=== PATIENT | female | born 1975 | race Caucasian/White ===

== ENCOUNTER 2019-12-04 11:20 | Emergency (ER) | payer MEDICARE ==
[~2019-12-04] VITALS: Ht 170.2 cm; Wt 74.8 kg
--- OUTSIDE RECORDS SUMMARY | 2019-12-04 11:23 | XMS REPORT ---
Author Author [facility] Organization [facility] Address Unknown Phone Unavailable Care Team Providers Care Agricultural Research Technician Name Role Phone Unavailable Unavailable Payers Payer Name Policy Type Policy Number Effective Date Expiration D ate Problems This patient has no known problems. Allergies, Adverse Reactions, Alerts Allergy Name Allergy Type Status Severity Reaction(s) Onset Date Inacti ve Date Treating Clinician Comments Penicillins DA Active SV 2019-07-12 00:00:00 Penicillins DA Active SV 2018-01-05 00:00:00 Penicillins DA Active SV 2010-09-07 00:00:00 Medications This patient has no known medications. Results Test Description Test Time Test Comments Text Results Atomic Results Result Comments URINALYSIS COMPLETE 2019-08-04 09:27:00 UA COLOR (test code = COLU) YELLOW YELLOW UA APPEARANCE (test code = APPU) Cloudy CLEAR UA GLUCOSE DIPSTICK (test code = DGLUU) NEGATIVE mg/dL NEGATIVE UA BILIRUBIN DIPSTICK (test code = BILU) NEGATIVE mg/dL NEGATIV E UA KETONE DIPSTICK (test code = KETU) 80 (3+) mg/dL NEGATIVE UA SPECIFIC GRAVITY (test code = SGU) 1.020 1.001-1.03 5 UA BLOOD DIPSTICK (test code = OSEAS) Negative mg/dL NEGATIVE UA PH DIPSTICK (test code = CORI) 8.0 5.0-8.0 UA PROTEIN DIPSTICK (test code = PROU) 20 (Trace) mg/dL NEGATIVE UA UROBILINIOGEN DIPSTICK (test code = URO) Normal mg/dL NEGA TIVE UA NITRITE DIPSTICK (test code = NISHA) NEGATIVE NEGATIVE UA LEUKOCYTE ESTERASE W REFLEX (test code = LEUUR) NEGATIVE Latoya/ uL NEGATIVE UA WBC (test code = WBCU) 0-5 per HPF 0-5 UA RBC (test code = RBCU) 0-2 #/HPF 0-5 UA EPITHELIAL CELLS (test code = EPIU) MOD per HPF FEW UA BACTERIA (test code = BACU) FEW #/HPF NONE UA MUCUS (test code = MUCU) MODERATE #/LPF FEW Urine Source? Clean CatchDRUGS OF ABUSE SCREEN [id number] 09:27:00* Test Item Value Reference Range Comments URN COCAINE (test code = COCAURN) NEGATIVE <300 ng/mL URN CANNABINOIDS (test code = CANNABURN) POSITIVE <50 ng/ mL This test provides only a preliminary test result. A morespecific alternate chemical method must be used in order toobtain a confirmed analytical result. Gas chromatography/mass spectrometry (GC/MS) is thepreferred confirmatory method. Other chemical confirmationmethods are available. Clinical consideration and professional judgment should be applied to any drug of abusetest result, particularly when preliminary positive resultsare used.Unconfirmed screening results must not be used fornon-medical purposes (e.g., employment testing, legaltesting). URN AMPHETAMINE (test code = AMPHETURN) POSITIVE <1000 ng /mL This test provides only a preliminary test result. A morespecific alternate chemical method must be used in order toobtain a confirmed analytical result. Gas chromatography/mass spectrometry (GC/MS) is thepreferred confirmatory method. Other chemical confirmationmethods are available. Clinical consideration and professional judgment should be applied to any drug of abusetest result, particularly when preliminary positive resultsare used.Unconfirmed screening results must not be used fornon-medical purposes (e.g., employment testing, legaltesting). URN BARBITURATE (test code = BARBITURN) NEGATIVE <200 ng/ mL URN BENZODIAZEPINE (test code = BENZOURN) NEGATIVE <200 n g/mL URN OPIATES (test code = OPIATURN) POSITIVE <300 ng/mL This test provides only a preliminary test result. A morespecific alternate chemical method must be used in order toobtain a confirmed analytical result. Gas chromatography/mass spectrometry (GC/MS) is thepreferred confirmatory method. Other chemical confirmationmethods are available. Clinical consideration and professional judgment should be applied to any drug of abusetest result, particularly when preliminary positive resultsare used.Unconfirmed screening results must not be used fornon-medical purposes (e.g., employment testing, legaltesting). URN PHENCYCLIDINE (PCP) (test code = PHENCURN) NEGATIVE < 25 ng/mL URN METHADONE (test code = METHAURN) NEGATIVE <300 ng/mL Urine Source? Clean CatchCBC W/O [id number] 09:02:00* Test Item Value Reference Range Comments WHITE BLOOD CELL (test code = WBC) 6.5 K/mm3 4.5-12.5 RED BLOOD CELL (test code = RBC) 4.73 mill/mm3 3.7-5.2 HEMOGLOBIN (test code = HGB) 13.7 gram/dL 11.5-15.5 HEMATOCRIT (test code = HCT) 40.8 % 36.0-46.0 MEAN CELL VOLUME (test code = MCV) 86.3 fL 80-98 MEAN CELL HGB (test code = MCH) 29.0 picogram 27.0-33.0 MEAN CELL HGB CONCETRATION (test code = MCHC) 33.6 gram/dL 33 .0-36.0 RED CELL DISTRIBUTION WIDTH (test code = RDW) 13.8 % 11 .6-16.2 PLATELET COUNT (test code = PLT) 259 K/mm3 150-450 MEAN PLATELET VOLUME (test code = MPV) 10.3 fL 6.7-11.0 URINALYSIS [id number] 08:55:00* Test Item Value Reference Range Comments UA COLOR (test code = COLU) YELLOW YELLOW UA APPEARANCE (test code = APPU) Cloudy CLEAR UA GLUCOSE DIPSTICK (test code = DGLUU) NEGATIVE mg/dL NEGATIVE UA BILIRUBIN DIPSTICK (test code = BILU) NEGATIVE mg/dL NEGATIV E UA KETONE DIPSTICK (test code = KETU) 80 (3+) mg/dL NEGATIVE UA SPECIFIC GRAVITY (test code = SGU) 1.020 1.001-1.03 5 UA BLOOD DIPSTICK (test code = OSEAS) Negative mg/dL NEGATIVE UA PH DIPSTICK (test code = CORI) 8.0 5.0-8.0 UA PROTEIN DIPSTICK (test code = PROU) 20 (Trace) mg/dL NEGATIVE UA UROBILINIOGEN DIPSTICK (test code = URO) Normal mg/dL NEGA TIVE UA NITRITE DIPSTICK (test code = NISHA) NEGATIVE NEGATIVE UA LEUKOCYTE ESTERASE W REFLEX (test code = LEUUR) NEGATIVE Latoya/ uL NEGATIVE UA WBC (test code = WBCU) 0-5 per HPF 0-5 UA RBC (test code = RBCU) 0-2 #/HPF 0-5 UA EPITHELIAL CELLS (test code = EPIU) MOD per HPF FEW UA BACTERIA (test code = BACU) FEW #/HPF NONE UA MUCUS (test code = MUCU) MODERATE #/LPF FEW Urine Source? Clean CatchDRUGS OF ABUSE SCREEN [id number] 08:55:00* Test Item Value Reference Range Comments URN COCAINE (test code = COCAURN) <300 ng/mL URN CANNABINOIDS (test code = CANNABURN) <50 ng/ mL URN AMPHETAMINE (test code = AMPHETURN) <1000 ng /mL URN BARBITURATE (test code = BARBITURN) <200 ng/ mL URN BENZODIAZEPINE (test code = BENZOURN) <200 n g/mL URN OPIATES (test code = OPIATURN) <300 ng/mL URN PHENCYCLIDINE (PCP) (test code = PHENCURN) < 25 ng/mL URN METHADONE (test code = METHAURN) <300 ng/mL Urine Source? Clean CatchBASIC METABOLIC [id number] 08:54:00* Test Item Value Reference Range Comments SODIUM (test code = NA) 138 mmol/L 136-145 POTASSIUM (test code = K) 3.1 mmol/L 3.5-5.1 CHLORIDE (test code = CL) 103.0 mmol/L 98-107 CARBON DIOXIDE (test code = CO2) 25.0 mmol/L 21-32 ANION GAP (test code = GAP) 13.1 10-20 GLUCOSE (test code = GLU) 97 mg/dL 74-106 BLOOD UREA NITROGEN (test code = BUN) 10 mg/dL 7-18 GLOMERULAR FILTRATION RATE (test code = GFR) > 60 mL/min >=6 0 Estimated GFR by using Modified MDRD formula.Chronic kidney disease is defined as either kidney damageor GFR <60 mL/min/1.73 m2 for >3 months. CREATININE (test code = CREAT) 0.70 mg/dL 0.55-1.02 * *Note change in reference range due to change in reagent. BUN/CREATININE RATIO (test code = BUN/CREA) 14.3 10-2 0 CALCIUM (test code = CA) 9.6 mg/dL 8.5-10.1 HEPATIC FUNCTION [id number] 08:54:00* Test Item Value Reference Range Comments TOTAL PROTEIN (test code = PROT) 7.7 gram/dL 6.4-8.2 ALBUMIN (test code = ALB) 4.0 g/dL 3.4-5.0 GLOBULIN (test code = GLOB) 3.7 gram/dL 2.7-4.2 ALBUMIN/GLOBULIN RATIO (test code = A/G) 1.1 0.75-1. 50 BILIRUBIN TOTAL (test code = BILT) 0.60 mg/dL 0.0-1.0 BILIRUBIN DIRECT (test code = BILD) 0.18 mg/dL 0.0-0.20 SGOT/AST (test code = AST) 23 IUnit/L 15-37 SGPT/ALT (test code = ALT) 31 IUnit/L 12-78 ALKALINE PHOSPHATASE TOTAL (test code = ALKP) 88 IUnit/L 45 -117 Note change in reference range due to change in reagent. [id number] 08:54:00* Test Item Value Reference Range Comments ALCOHOL (test code = ALC) 5 mg/dL 0.0-3.0 ------ INTERPRETIVE DATA NOTE: POSITIVE SCREENING RESULTS SHOULD BE CONSIDERED PRESUMPTIVE.WHEN COLLECTED FOR MEDICAL PURPOSES ONLY. SPECIMEN WILL NOTBE COLLECTED BY CHAIN OF CUSTODY.IF A CONFIRMATION OF POSITIVE RESULTS IS DESIRED, ACONFIRMATION TEST MUST BE REQUESTED BY THE PHYSICIAN AT ANADDITIONAL CHARGE TO THE PATIENT. BASIC METABOLIC [id number] 08:45:00* Test Item Value Reference Range Comments SODIUM (test code = NA) 138 mmol/L 136-145 POTASSIUM (test code = K) 3.1 mmol/L 3.5-5.1 CHLORIDE (test code = CL) 103.0 mmol/L 98-107 CARBON DIOXIDE (test code = CO2) mmol/L 21-32 ANION GAP (test code = GAP) 10-20 GLUCOSE (test code = GLU) mg/dL 74-106 BLOOD UREA NITROGEN (test code = BUN) mg/dL 7-18 GLOMERULAR FILTRATION RATE (test code = GFR) mL/min >=6 0 CREATININE (test code = CREAT) mg/dL 0.55-1.02 BUN/CREATININE RATIO (test code = BUN/CREA) 10-2 0 CALCIUM (test code = CA) mg/dL 8.5-10.1 HEPATIC FUNCTION [id number] 08:45:00* Test Item Value Reference Range Comments TOTAL PROTEIN (test code = PROT) gram/dL 6.4-8.2 ALBUMIN (test code = ALB) g/dL 3.4-5.0 GLOBULIN (test code = GLOB) gram/dL 2.7-4.2 ALBUMIN/GLOBULIN RATIO (test code = A/G) 0.75-1. 50 BILIRUBIN TOTAL (test code = BILT) mg/dL 0.0-1.0 BILIRUBIN DIRECT (test code = BILD) mg/dL 0.0-0.20 SGOT/AST (test code = AST) IUnit/L 15-37 SGPT/ALT (test code = ALT) IUnit/L 12-78 ALKALINE PHOSPHATASE TOTAL (test code = ALKP) IUnit/L 45 -117 [id number] 08:45:00* Test Item Value Reference Range Comments ALCOHOL (test code = ALC) mg/dL 0-3 COMPREHENSIVE METABOLIC [id number] 04:22:00* Test Item Value Reference Range Comments SODIUM (test code = NA) 141 mmol/L 136-145 POTASSIUM (test code = K) 3.8 mmol/L 3.5-5.1 CHLORIDE (test code = CL) 108.0 mmol/L 98-107 CARBON DIOXIDE (test code = CO2) 29.0 mmol/L 21-32 ANION GAP (test code = GAP) 7.8 10-20 GLUCOSE (test code = GLU) 97 mg/dL 74-106 BLOOD UREA NITROGEN (test code = BUN) 12 mg/dL 7-18 GLOMERULAR FILTRATION RATE (test code = GFR) > 60 mL/min >=6 0 Estimated GFR by using Modified MDRD formula.Chronic kidney disease is defined as either kidney damageor GFR <60 mL/min/1.73 m2 for >3 months. CREATININE (test code = CREAT) 0.60 mg/dL 0.55-1.02 * *Note change in reference range due to change in reagent. BUN/CREATININE RATIO (test code = BUN/CREA) 21.0 10-2 0 TOTAL PROTEIN (test code = PROT) 6.2 gram/dL 6.4-8.2 ALBUMIN (test code = ALB) 2.9 g/dL 3.4-5.0 GLOBULIN (test code = GLOB) 3.3 gram/dL 2.7-4.2 ALBUMIN/GLOBULIN RATIO (test code = A/G) 0.9 0.75-1. 50 CALCIUM (test code = CA) 8.4 mg/dL 8.5-10.1 BILIRUBIN TOTAL (test code = BILT) 0.20 mg/dL 0.0-1.0 SGOT/AST (test code = AST) 47 IUnit/L 15-37 SGPT/ALT (test code = ALT) 50 IUnit/L 12-78 ALKALINE PHOSPHATASE TOTAL (test code = ALKP) 57 IUnit/L 45 -117 Note change in reference range due to change in reagent. COMPREHENSIVE METABOLIC [id number] 04:13:00* Test Item Value Reference Range Comments SODIUM (test code = NA) 141 mmol/L 136-145 POTASSIUM (test code = K) 3.8 mmol/L 3.5-5.1 CHLORIDE (test code = CL) 108.0 mmol/L 98-107 CARBON DIOXIDE (test code = CO2) mmol/L 21-32 ANION GAP (test code = GAP) 10-20 GLUCOSE (test code = GLU) mg/dL 74-106 BLOOD UREA NITROGEN (test code = BUN) mg/dL 7-18 GLOMERULAR FILTRATION RATE (test code = GFR) mL/min >=6 0 CREATININE (test code = CREAT) mg/dL 0.55-1.02 BUN/CREATININE RATIO (test code = BUN/CREA) 10-2 0 TOTAL PROTEIN (test code = PROT) gram/dL 6.4-8.2 ALBUMIN (test code = ALB) g/dL 3.4-5.0 GLOBULIN (test code = GLOB) gram/dL 2.7-4.2 ALBUMIN/GLOBULIN RATIO (test code = A/G) 0.75-1. 50 CALCIUM (test code = CA) mg/dL 8.5-10.1 BILIRUBIN TOTAL (test code = BILT) mg/dL 0.0-1.0 SGOT/AST (test code = AST) IUnit/L 15-37 SGPT/ALT (test code = ALT) IUnit/L 12-78 ALKALINE PHOSPHATASE TOTAL (test code = ALKP) IUnit/L 45 -117 CBC W/AUTO [id number] 04:02:00* Test Item Value Reference Range Comments WHITE BLOOD CELL (test code = WBC) 5.9 K/mm3 4.5-12.5 RED BLOOD CELL (test code = RBC) 4.46 mill/mm3 3.7-5.2 HEMOGLOBIN (test code = HGB) 12.8 gram/dL 11.5-15.5 HEMATOCRIT (test code = HCT) 39.3 % 36.0-46.0 MEAN CELL VOLUME (test code = MCV) 88.1 fL 80-98 MEAN CELL HGB (test code = MCH) 28.7 picogram 27.0-33.0 MEAN CELL HGB CONCETRATION (test code = MCHC) 32.6 gram/dL 33 .0-36.0 RED CELL DISTRIBUTION WIDTH (test code = RDW) 13.2 % 11 .6-16.2 RED CELL DISTRIBUTION WIDTH SD (test code = RDW-SD) 42.5 fL 37.0-51.0 PLATELET COUNT (test code = PLT) 201 K/mm3 150-450 MEAN PLATELET VOLUME (test code = MPV) 10.0 fL 6.7-11.0 NEUTROPHIL % (test code = NT%) 44.9 % 39.0-69.0 IMMATURE GRANULOCYTE % (test code = IG%) 0.2 % 0.0-5.0 LYMPHOCYTE % (test code = LY%) 43.1 % 25.0-55.0 MONOCYTE % (test code = MO%) 8.9 % 0.0-10.0 EOSINOPHIL % (test code = EO%) 2.6 % 0.0-5.0 BASOPHIL % (test code = BA%) 0.3 % 0.0-1.0 NUCLEATED RBC % (test code = NRBC%) 0.0 % 0-0 NEUTROPHIL # (test code = NT#) 2.64 K/mm3 1.8-7.7 IMMATURE GRANULOCYTE # (test code = IG#) 0.01 x10 3/uL 0-0.03 LYMPHOCYTE # (test code = LY#) 2.53 K/mm3 1.0-5.0 MONOCYTE # (test code = MO#) 0.52 K/mm3 0-0.8 EOSINOPHIL # (test code = EO#) 0.15 K/mm3 0.0-0.5 BASOPHIL # (test code = BA#) 0.02 K/mm3 0.0-0.2 NUCLEATED RBC # (test code = NRBC#) 0.00 K/mm3 0.0-0.1 MANUAL DIFF REQUIRED (test code = MDIFF) NO CBC W/AUTO [id number] 04:00:00* Test Item Value Reference Range Comments WHITE BLOOD CELL (test code = WBC) K/mm3 4.5-12.5 RED BLOOD CELL (test code = RBC) mill/mm3 3.7-5.2 HEMOGLOBIN (test code = HGB) 12.8 gram/dL 11.5-15.5 HEMATOCRIT (test code = HCT) 39.3 % 36.0-46.0 MEAN CELL VOLUME (test code = MCV) fL 80-98 MEAN CELL HGB (test code = MCH) picogram 27.0-33.0 MEAN CELL HGB CONCETRATION (test code = MCHC) gram/dL 33 .0-36.0 RED CELL DISTRIBUTION WIDTH (test code = RDW) % 11 .6-16.2 RED CELL DISTRIBUTION WIDTH SD (test code = RDW-SD) fL 37.0-51.0 PLATELET COUNT (test code = PLT) K/mm3 150-450 MEAN PLATELET VOLUME (test code = MPV) fL 6.7-11.0 NEUTROPHIL % (test code = NT%) % 39.0-69.0 IMMATURE GRANULOCYTE % (test code = IG%) % 0.0-5.0 LYMPHOCYTE % (test code = LY%) % 25.0-55.0 MONOCYTE % (test code = MO%) % 0.0-10.0 EOSINOPHIL % (test code = EO%) % 0.0-5.0 BASOPHIL % (test code = BA%) % 0.0-1.0 NEUTROPHIL # (test code = NT#) K/mm3 1.8-7.7 LYMPHOCYTE # (test code = LY#) K/mm3 1.0-5.0 MONOCYTE # (test code = MO#) K/mm3 0-0.8 EOSINOPHIL # (test code = EO#) K/mm3 0.0-0.5 BASOPHIL # (test code = BA#) K/mm3 0.0-0.2 BASIC METABOLIC [id number] 06:32:00* Test Item Value Reference Range Comments SODIUM (test code = NA) 143 mmol/L 136-145 POTASSIUM (test code = K) 3.7 mmol/L 3.5-5.1 CHLORIDE (test code = CL) 111.0 mmol/L 98-107 CARBON DIOXIDE (test code = CO2) 27.0 mmol/L 21-32 ANION GAP (test code = GAP) 8.7 10-20 GLUCOSE (test code = GLU) 92 mg/dL 74-106 BLOOD UREA NITROGEN (test code = BUN) 8 mg/dL 7-18 GLOMERULAR FILTRATION RATE (test code = GFR) > 60 mL/min >=6 0 Estimated GFR by using Modified MDRD formula.Chronic kidney disease is defined as either kidney damageor GFR <60 mL/min/1.73 m2 for >3 months. CREATININE (test code = CREAT) 0.50 mg/dL 0.55-1.02 * *Note change in reference range due to change in reagent. BUN/CREATININE RATIO (test code = BUN/CREA) 15.4 10-2 0 CALCIUM (test code = CA) 8.4 mg/dL 8.5-10.1 [id number] 06:32:00* Test Item Value Reference Range Comments MAGNESIUM (test code = MAG) 2.1 mg/dL 1.8-2.4 BASIC METABOLIC [id number] 06:24:00* Test Item Value Reference Range Comments SODIUM (test code = NA) 143 mmol/L 136-145 POTASSIUM (test code = K) 3.7 mmol/L 3.5-5.1 CHLORIDE (test code = CL) 111.0 mmol/L 98-107 CARBON DIOXIDE (test code = CO2) mmol/L 21-32 ANION GAP (test code = GAP) 10-20 GLUCOSE (test code = GLU) mg/dL 74-106 BLOOD UREA NITROGEN (test code = BUN) mg/dL 7-18 GLOMERULAR FILTRATION RATE (test code = GFR) mL/min >=6 0 CREATININE (test code = CREAT) mg/dL 0.55-1.02 BUN/CREATININE RATIO (test code = BUN/CREA) 10-2 0 CALCIUM (test code = CA) mg/dL 8.5-10.1 [id number] 06:24:00* Test Item Value Reference Range Comments MAGNESIUM (test code = MAG) mg/dL 1.8-2.4 CBC W/O [id number] 06:02:00* Test Item Value Reference Range Comments WHITE BLOOD CELL (test code = WBC) 4.6 K/mm3 4.5-12.5 RED BLOOD CELL (test code = RBC) 4.45 mill/mm3 3.7-5.2 HEMOGLOBIN (test code = HGB) 12.9 gram/dL 11.5-15.5 HEMATOCRIT (test code = HCT) 38.5 % 36.0-46.0 MEAN CELL VOLUME (test code = MCV) 86.5 fL 80-98 MEAN CELL HGB (test code = MCH) 29.0 picogram 27.0-33.0 MEAN CELL HGB CONCETRATION (test code = MCHC) 33.5 gram/dL 33 .0-36.0 RED CELL DISTRIBUTION WIDTH (test code = RDW) 13.2 % 11 .6-16.2 PLATELET COUNT (test code = PLT) 196 K/mm3 150-450 MEAN PLATELET VOLUME (test code = MPV) 10.3 fL 6.7-11.0 BASIC METABOLIC [id number] 05:04:00* Test Item Value Reference Range Comments SODIUM (test code = NA) 141 mmol/L 136-145 POTASSIUM (test code = K) 3.6 mmol/L 3.5-5.1 CHLORIDE (test code = CL) 110.0 mmol/L 98-107 CARBON DIOXIDE (test code = CO2) 27.0 mmol/L 21-32 ANION GAP (test code = GAP) 7.6 10-20 GLUCOSE (test code = GLU) 79 mg/dL 74-106 BLOOD UREA NITROGEN (test code = BUN) 7 mg/dL 7-18 GLOMERULAR FILTRATION RATE (test code = GFR) > 60 mL/min >=6 0 Estimated GFR by using Modified MDRD formula.Chronic kidney disease is defined as either kidney damageor GFR <60 mL/min/1.73 m2 for >3 months. CREATININE (test code = CREAT) 0.50 mg/dL 0.55-1.02 * *Note change in reference range due to change in reagent. BUN/CREATININE RATIO (test code = BUN/CREA) 14.6 10-2 0 CALCIUM (test code = CA) 8.3 mg/dL 8.5-10.1 [id number] 05:04:00* Test Item Value Reference Range Comments MAGNESIUM (test code = MAG) 2.1 mg/dL 1.8-2.4 BASIC METABOLIC [id number] 05:01:00* Test Item Value Reference Range Comments SODIUM (test code = NA) 141 mmol/L 136-145 POTASSIUM (test code = K) 3.6 mmol/L 3.5-5.1 CHLORIDE (test code = CL) 110.0 mmol/L 98-107 CARBON DIOXIDE (test code = CO2) mmol/L 21-32 ANION GAP (test code = GAP) 10-20 GLUCOSE (test code = GLU) mg/dL 74-106 BLOOD UREA NITROGEN (test code = BUN) mg/dL 7-18 GLOMERULAR FILTRATION RATE (test code = GFR) mL/min >=6 0 CREATININE (test code = CREAT) mg/dL 0.55-1.02 BUN/CREATININE RATIO (test code = BUN/CREA) 10-2 0 CALCIUM (test code = CA) mg/dL 8.5-10.1 [id number] 05:01:00* Test Item Value Reference Range Comments MAGNESIUM (test code = MAG) mg/dL 1.8-2.4 CBC W/O [id number] 04:51:00* Test Item Value Reference Range Comments WHITE BLOOD CELL (test code = WBC) 3.9 K/mm3 4.5-12.5 RED BLOOD CELL (test code = RBC) 4.27 mill/mm3 3.7-5.2 HEMOGLOBIN (test code = HGB) 12.1 gram/dL 11.5-15.5 HEMATOCRIT (test code = HCT) 38.1 % 36.0-46.0 MEAN CELL VOLUME (test code = MCV) 89.2 fL 80-98 MEAN CELL HGB (test code = MCH) 28.3 picogram 27.0-33.0 MEAN CELL HGB CONCETRATION (test code = MCHC) 31.8 gram/dL 33 .0-36.0 RED CELL DISTRIBUTION WIDTH (test code = RDW) 13.7 % 11 .6-16.2 PLATELET COUNT (test code = PLT) 157 K/mm3 150-450 MEAN PLATELET VOLUME (test code = MPV) 10.0 fL 6.7-11.0 CBC W/O [id number] 04:50:00* Test Item Value Reference Range Comments WHITE BLOOD CELL (test code = WBC) K/mm3 4.5-12.5 RED BLOOD CELL (test code = RBC) mill/mm3 3.7-5.2 HEMOGLOBIN (test code = HGB) 12.1 gram/dL 11.5-15.5 HEMATOCRIT (test code = HCT) 38.1 % 36.0-46.0 MEAN CELL VOLUME (test code = MCV) fL 80-98 MEAN CELL HGB (test code = MCH) picogram 27.0-33.0 MEAN CELL HGB CONCETRATION (test code = MCHC) gram/dL 33 .0-36.0 RED CELL DISTRIBUTION WIDTH (test code = RDW) % 11 .6-16.2 PLATELET COUNT (test code = PLT) K/mm3 150-450 MEAN PLATELET VOLUME (test code = MPV) fL 6.7-11.0 [id number] 10:46:00* Test Item Value Reference Range Comments PHOSPHORUS (test code = PHOS) 2.8 mg/dL 2.5-4.9 SPECIMEN COMMENTS: USE BLOOD IN LABCOMMENTS TO INCIDENT RESPONSE LEAD: USE BLOOD IN LAB [id number] 10:46:00* Test Item Value Reference Range Comments MAGNESIUM (test code = MAG) 2.1 mg/dL 1.8-2.4 SPECIMEN COMMENTS: USE BLOOD IN LABCOMMENTS TO INCIDENT RESPONSE LEAD: USE BLOOD IN LAB [id number] 10:39:00* Test Item Value Reference Range Comments PHOSPHORUS (test code = PHOS) mg/dL 2.5-4.9 SPECIMEN COMMENTS: USE BLOOD IN LABCOMMENTS TO INCIDENT RESPONSE LEAD: USE BLOOD IN LAB [id number] 10:39:00* Test Item Value Reference Range Comments MAGNESIUM (test code = MAG) 2.1 mg/dL 1.8-2.4 SPECIMEN COMMENTS: USE BLOOD IN LABCOMMENTS TO INCIDENT RESPONSE LEAD: USE BLOOD IN LAB BASIC METABOLIC [id number] 04:42:00* Test Item Value Reference Range Comments SODIUM (test code = NA) 143 mmol/L 136-145 POTASSIUM (test code = K) 3.5 mmol/L 3.5-5.1 CHLORIDE (test code = CL) 109.0 mmol/L 98-107 CARBON DIOXIDE (test code = CO2) 31.0 mmol/L 21-32 ANION GAP (test code = GAP) 6.5 10-20 GLUCOSE (test code = GLU) 81 mg/dL 74-106 BLOOD UREA NITROGEN (test code = BUN) 9 mg/dL 7-18 GLOMERULAR FILTRATION RATE (test code = GFR) > 60 mL/min >=6 0 Estimated GFR by using Modified MDRD formula.Chronic kidney disease is defined as either kidney damageor GFR <60 mL/min/1.73 m2 for >3 months. CREATININE (test code = CREAT) 0.50 mg/dL 0.55-1.02 * *Note change in reference range due to change in reagent. BUN/CREATININE RATIO (test code = BUN/CREA) 16.8 10-2 0 CALCIUM (test code = CA) 8.1 mg/dL 8.5-10.1 BASIC METABOLIC [id number] 04:37:00* Test Item Value Reference Range Comments SODIUM (test code = NA) 143 mmol/L 136-145 POTASSIUM (test code = K) 3.5 mmol/L 3.5-5.1 CHLORIDE (test code = CL) 109.0 mmol/L 98-107 CARBON DIOXIDE (test code = CO2) mmol/L 21-32 ANION GAP (test code = GAP) 10-20 GLUCOSE (test code = GLU) mg/dL 74-106 BLOOD UREA NITROGEN (test code = BUN) mg/dL 7-18 GLOMERULAR FILTRATION RATE (test code = GFR) mL/min >=6 0 CREATININE (test code = CREAT) mg/dL 0.55-1.02 BUN/CREATININE RATIO (test code = BUN/CREA) 10-2 0 CALCIUM (test code = CA) 8.1 mg/dL 8.5-10.1 CBC W/AUTO [id number] 04:21:00* Test Item Value Reference Range Comments WHITE BLOOD CELL (test code = WBC) 4.2 K/mm3 4.5-12.5 RED BLOOD CELL (test code = RBC) 4.26 mill/mm3 3.7-5.2 HEMOGLOBIN (test code = HGB) 12.4 gram/dL 11.5-15.5 HEMATOCRIT (test code = HCT) 37.3 % 36.0-46.0 MEAN CELL VOLUME (test code = MCV) 87.6 fL 80-98 MEAN CELL HGB (test code = MCH) 29.1 picogram 27.0-33.0 MEAN CELL HGB CONCETRATION (test code = MCHC) 33.2 gram/dL 33 .0-36.0 RED CELL DISTRIBUTION WIDTH (test code = RDW) 13.7 % 11 .6-16.2 RED CELL DISTRIBUTION WIDTH SD (test code = RDW-SD) 43.9 fL 37.0-51.0 PLATELET COUNT (test code = PLT) 159 K/mm3 150-450 MEAN PLATELET VOLUME (test code = MPV) 10.2 fL 6.7-11.0 NEUTROPHIL % (test code = NT%) 51.8 % 39.0-69.0 IMMATURE GRANULOCYTE % (test code = IG%) 0.2 % 0.0-5.0 LYMPHOCYTE % (test code = LY%) 38.7 % 25.0-55.0 MONOCYTE % (test code = MO%) 6.0 % 0.0-10.0 EOSINOPHIL % (test code = EO%) 3.1 % 0.0-5.0 BASOPHIL % (test code = BA%) 0.2 % 0.0-1.0 NUCLEATED RBC % (test code = NRBC%) 0.0 % 0-0 NEUTROPHIL # (test code = NT#) 2.15 K/mm3 1.8-7.7 IMMATURE GRANULOCYTE # (test code = IG#) 0.01 x10 3/uL 0-0.03 LYMPHOCYTE # (test code = LY#) 1.61 K/mm3 1.0-5.0 MONOCYTE # (test code = MO#) 0.25 K/mm3 0-0.8 EOSINOPHIL # (test code = EO#) 0.13 K/mm3 0.0-0.5 BASOPHIL # (test code = BA#) 0.01 K/mm3 0.0-0.2 NUCLEATED RBC # (test code = NRBC#) 0.00 K/mm3 0.0-0.1 MANUAL DIFF REQUIRED (test code = MDIFF) NO BASIC METABOLIC [id number] 04:09:00* Test Item Value Reference Range Comments SODIUM (test code = NA) 143 mmol/L 136-145 POTASSIUM (test code = K) 3.2 mmol/L 3.5-5.1 CHLORIDE (test code = CL) 110.0 mmol/L 98-107 CARBON DIOXIDE (test code = CO2) 29.0 mmol/L 21-32 ANION GAP (test code = GAP) 7.2 10-20 GLUCOSE (test code = GLU) 84 mg/dL 74-106 BLOOD UREA NITROGEN (test code = BUN) 8 mg/dL 7-18 GLOMERULAR FILTRATION RATE (test code = GFR) > 60 mL/min >=6 0 Estimated GFR by using Modified MDRD formula.Chronic kidney disease is defined as either kidney damageor GFR <60 mL/min/1.73 m2 for >3 months. CREATININE (test code = CREAT) 0.60 mg/dL 0.55-1.02 * *Note change in reference range due to change in reagent. BUN/CREATININE RATIO (test code = BUN/CREA) 14.1 10-2 0 CALCIUM (test code = CA) 8.2 mg/dL 8.5-10.1 [id number] 04:09:00* Test Item Value Reference Range Comments PHOSPHORUS (test code = PHOS) 2.1 mg/dL 2.5-4.9 [id number] 04:09:00* Test Item Value Reference Range Comments MAGNESIUM (test code = MAG) 1.9 mg/dL 1.8-2.4 CALCIUM [id number] 04:09:00* Test Item Value Reference Range Comments CALCIUM IONIZED (test code = HARI) 1.28 mmol/L 1.12-1.32 BASIC METABOLIC [id number] 04:01:00* Test Item Value Reference Range Comments SODIUM (test code = NA) mmol/L 136-145 POTASSIUM (test code = K) mmol/L 3.5-5.1 CHLORIDE (test code = CL) mmol/L 98-107 CARBON DIOXIDE (test code = CO2) mmol/L 21-32 ANION GAP (test code = GAP) 10-20 GLUCOSE (test code = GLU) mg/dL 74-106 BLOOD UREA NITROGEN (test code = BUN) mg/dL 7-18 GLOMERULAR FILTRATION RATE (test code = GFR) mL/min >=6 0 CREATININE (test code = CREAT) mg/dL 0.55-1.02 BUN/CREATININE RATIO (test code = BUN/CREA) 10-2 0 CALCIUM (test code = CA) mg/dL 8.5-10.1 [id number] 04:01:00* Test Item Value Reference Range Comments PHOSPHORUS (test code = PHOS) mg/dL 2.5-4.9 [id number] 04:01:00* Test Item Value Reference Range Comments MAGNESIUM (test code = MAG) mg/dL 1.8-2.4 CALCIUM [id number] 04:01:00* Test Item Value Reference Range Comments CALCIUM IONIZED (test code = HARI) 1.28 mmol/L 1.12-1.32 CBC W/AUTO [id number] 03:30:00* Test Item Value Reference Range Comments WHITE BLOOD CELL (test code = WBC) 7.2 K/mm3 4.5-12.5 RED BLOOD CELL (test code = RBC) 4.09 mill/mm3 3.7-5.2 HEMOGLOBIN (test code = HGB) 11.8 gram/dL 11.5-15.5 HEMATOCRIT (test code = HCT) 36.5 % 36.0-46.0 MEAN CELL VOLUME (test code = MCV) 89.2 fL 80-98 MEAN CELL HGB (test code = MCH) 28.9 picogram 27.0-33.0 MEAN CELL HGB CONCETRATION (test code = MCHC) 32.3 gram/dL 33 .0-36.0 RED CELL DISTRIBUTION WIDTH (test code = RDW) 13.7 % 11 .6-16.2 RED CELL DISTRIBUTION WIDTH SD (test code = RDW-SD) 45.1 fL 37.0-51.0 PLATELET COUNT (test code = PLT) 156 K/mm3 150-450 RESULT VERIFIED BY REPEAT ANALYSIS MEAN PLATELET VOLUME (test code = MPV) 9.8 fL 6.7-11.0 NEUTROPHIL % (test code = NT%) 61.3 % 39.0-69.0 IMMATURE GRANULOCYTE % (test code = IG%) 0.1 % 0.0-5.0 LYMPHOCYTE % (test code = LY%) 30.6 % 25.0-55.0 MONOCYTE % (test code = MO%) 5.8 % 0.0-10.0 EOSINOPHIL % (test code = EO%) 1.9 % 0.0-5.0 BASOPHIL % (test code = BA%) 0.3 % 0.0-1.0 NUCLEATED RBC % (test code = NRBC%) 0.0 % 0-0 NEUTROPHIL # (test code = NT#) 4.43 K/mm3 1.8-7.7 IMMATURE GRANULOCYTE # (test code = IG#) 0.01 x10 3/uL 0-0.03 LYMPHOCYTE # (test code = LY#) 2.21 K/mm3 1.0-5.0 MONOCYTE # (test code = MO#) 0.42 K/mm3 0-0.8 EOSINOPHIL # (test code = EO#) 0.14 K/mm3 0.0-0.5 BASOPHIL # (test code = BA#) 0.02 K/mm3 0.0-0.2 NUCLEATED RBC # (test code = NRBC#) 0.00 K/mm3 0.0-0.1 [id number] 00:58:00* Test Item Value Reference Range Comments TROPONIN-I (test code = TROPI) <0.015 ng/mL 0-0.045 [id number] 19:53:00* Test Item Value Reference Range Comments CREATININE (test code = CREAT) 0.90 mg/dL 0.55-1.02 * *Note change in reference range due to change in reagent. ARTERIAL BLOOD [id number] 16:36:00* Test Item Value Reference Range Comments ARTERIAL BLOOD GAS PH (test code = PHA) 7.31 7.35-7.4 5 ARTERIAL BLOOD GAS PCO2 (test code = PCO2A) 47.5 mm Hg 35-4 5 ARTERIAL BLOOD GAS PO2 (test code = PO2A) 128.7 mmHg 80-100 BICARBONATE TOTAL HCO3 (test code = HCO3) 23.4 mmol/L 23.0-2 7.0 BASE EXCESS (test code = RICCARDO) -3.1 mmol/L -3.0-5.0 Re sults called to and read back by DR. Llamas 16:36 - 07/12/2019; by emely ABFlor O2 SATURATION (test code = SATA) 98.3 % 90.0-98.0 ABG TYPE (test code = TYPEA) Arterial FIO2 (test code = FIO2A) 28.0 ABG SITE (test code = SITEA) Rt RADIAL ARTERY MODIFIED ALLENS (test code = MODALL) Yes CHECK PERFORMED HEMATOCRIT (test code = HCT/ABG) 41 % 35-47 TOTAL HGB (test code = THB) 13.8 gram/dL 11.5-15.5 HGB O2 SAT (test code = HBOSAT) 96.0 % 94.00-98.00 CARBOXYHEMOGLOBIN (test code = HOHGBT) 2.1 %totalHg 0.5-1.5 Results called to and read back by DR. Llamas 16:36 - 07/12/2019; by emely METHEMOGLOBIN (test code = METHGB) 0.2 % 0.0-1.50 O2 CONTENT (test code = O2CT) 18.8 % vol 18.0-22.0 URINALYSIS [id number] 13:57:00* Test Item Value Reference Range Comments UA COLOR (test code = COLU) Light-Yellow YELLOW UA APPEARANCE (test code = APPU) CLEAR CLEAR UA GLUCOSE DIPSTICK (test code = DGLUU) NEGATIVE mg/dL NEGATIVE UA BILIRUBIN DIPSTICK (test code = BILU) NEGATIVE mg/dL NEGATIV E UA KETONE DIPSTICK (test code = KETU) NEGATIVE mg/dL NEGATIVE UA SPECIFIC GRAVITY (test code = SGU) 1.009 1.001-1.03 5 UA BLOOD DIPSTICK (test code = OSEAS) Negative mg/dL NEGATIVE UA PH DIPSTICK (test code = CORI) 6.0 5.0-8.0 UA PROTEIN DIPSTICK (test code = PROU) NEGATIVE mg/dL NEGATIVE UA UROBILINIOGEN DIPSTICK (test code = URO) Normal mg/dL NEGA TIVE UA NITRITE DIPSTICK (test code = NISHA) NEGATIVE NEGATIVE UA LEUKOCYTE ESTERASE W REFLEX (test code = LEUUR) NEGATIVE Latoya/ uL NEGATIVE UA WBC (test code = WBCU) 0-5 per HPF 0-5 UA RBC (test code = RBCU) 3-5 #/HPF 0-5 UA EPITHELIAL CELLS (test code = EPIU) FEW per HPF FEW UA BACTERIA (test code = BACU) FEW #/HPF NONE UA MUCUS (test code = MUCU) FEW #/LPF FEW Urine Source? Clean CatchDRUGS OF ABUSE SCREEN [id number] 13:57:00* Test Item Value Reference Range Comments URN COCAINE (test code = COCAURN) NEGATIVE <300 ng/mL URN CANNABINOIDS (test code = CANNABURN) NEGATIVE <50 ng/ mL URN AMPHETAMINE (test code = AMPHETURN) POSITIVE <1000 ng /mL This test provides only a preliminary test result. A morespecific alternate chemical method must be used in order toobtain a confirmed analytical result. Gas chromatography/mass spectrometry (GC/MS) is thepreferred confirmatory method. Other chemical confirmationmethods are available. Clinical consideration and professional judgment should be applied to any drug of abusetest result, particularly when preliminary positive resultsare used.Unconfirmed screening results must not be used fornon-medical purposes (e.g., employment testing, legaltesting). URN BARBITURATE (test code = BARBITURN) NEGATIVE <200 ng/ mL URN BENZODIAZEPINE (test code = BENZOURN) POSITIVE <200 n g/mL This test provides only a preliminary test result. A morespecific alternate chemical method must be used in order toobtain a confirmed analytical result. Gas chromatography/mass spectrometry (GC/MS) is thepreferred confirmatory method. Other chemical confirmationmethods are available. Clinical consideration and professional judgment should be applied to any drug of abusetest result, particularly when preliminary positive resultsare used.Unconfirmed screening results must not be used fornon-medical purposes (e.g., employment testing, legaltesting). URN OPIATES (test code = OPIATURN) POSITIVE <300 ng/mL This test provides only a preliminary test result. A morespecific alternate chemical method must be used in order toobtain a confirmed analytical result. Gas chromatography/mass spectrometry (GC/MS) is thepreferred confirmatory method. Other chemical confirmationmethods are available. Clinical consideration and professional judgment should be applied to any drug of abusetest result, particularly when preliminary positive resultsare used.Unconfirmed screening results must not be used fornon-medical purposes (e.g., employment testing, legaltesting). URN PHENCYCLIDINE (PCP) (test code = PHENCURN) NEGATIVE < 25 ng/mL URN METHADONE (test code = METHAURN) NEGATIVE <300 ng/mL Urine Source? Clean CatchURINALYSIS [id number] 13:24:00* Test Item Value Reference Range Comments UA COLOR (test code = COLU) Light-Yellow YELLOW UA APPEARANCE (test code = APPU) CLEAR CLEAR UA GLUCOSE DIPSTICK (test code = DGLUU) NEGATIVE mg/dL NEGATIVE UA BILIRUBIN DIPSTICK (test code = BILU) NEGATIVE mg/dL NEGATIV E UA KETONE DIPSTICK (test code = KETU) NEGATIVE mg/dL NEGATIVE UA SPECIFIC GRAVITY (test code = SGU) 1.009 1.001-1.03 5 UA BLOOD DIPSTICK (test code = OSEAS) Negative mg/dL NEGATIVE UA PH DIPSTICK (test code = CORI) 6.0 5.0-8.0 UA PROTEIN DIPSTICK (test code = PROU) NEGATIVE mg/dL NEGATIVE UA UROBILINIOGEN DIPSTICK (test code = URO) Normal mg/dL NEGA TIVE UA NITRITE DIPSTICK (test code = NISHA) NEGATIVE NEGATIVE UA LEUKOCYTE ESTERASE W REFLEX (test code = LEUUR) NEGATIVE Latoya/ uL NEGATIVE UA WBC (test code = WBCU) 0-5 per HPF 0-5 UA RBC (test code = RBCU) 3-5 #/HPF 0-5 UA EPITHELIAL CELLS (test code = EPIU) FEW per HPF FEW UA BACTERIA (test code = BACU) FEW #/HPF NONE UA MUCUS (test code = MUCU) FEW #/LPF FEW Urine Source? Clean CatchDRUGS OF ABUSE SCREEN [id number] 13:24:00* Test Item Value Reference Range Comments URN COCAINE (test code = COCAURN) <300 ng/mL URN CANNABINOIDS (test code = CANNABURN) <50 ng/ mL URN AMPHETAMINE (test code = AMPHETURN) <1000 ng /mL URN BARBITURATE (test code = BARBITURN) <200 ng/ mL URN BENZODIAZEPINE (test code = BENZOURN) <200 n g/mL URN OPIATES (test code = OPIATURN) <300 ng/mL URN PHENCYCLIDINE (PCP) (test code = PHENCURN) < 25 ng/mL URN METHADONE (test code = METHAURN) <300 ng/mL Urine Source? Clean CatchCBC W/AUTO [id number] 12:34:00* Test Item Value Reference Range Comments WHITE BLOOD CELL (test code = WBC) 5.3 K/mm3 4.5-12.5 RED BLOOD CELL (test code = RBC) 4.75 mill/mm3 3.7-5.2 HEMOGLOBIN (test code = HGB) 13.7 gram/dL 11.5-15.5 HEMATOCRIT (test code = HCT) 42.2 % 36.0-46.0 MEAN CELL VOLUME (test code = MCV) 88.8 fL 80-98 MEAN CELL HGB (test code = MCH) 28.8 picogram 27.0-33.0 MEAN CELL HGB CONCETRATION (test code = MCHC) 32.5 gram/dL 33 .0-36.0 RED CELL DISTRIBUTION WIDTH (test code = RDW) 13.5 % 11 .6-16.2 RED CELL DISTRIBUTION WIDTH SD (test code = RDW-SD) 43.8 fL 37.0-51.0 PLATELET COUNT (test code = PLT) 208 K/mm3 150-450 MEAN PLATELET VOLUME (test code = MPV) 10.2 fL 6.7-11.0 NEUTROPHIL % (test code = NT%) 40.1 % 39.0-69.0 IMMATURE GRANULOCYTE % (test code = IG%) 1.1 % 0.0-5.0 LYMPHOCYTE % (test code = LY%) 47.5 % 25.0-55.0 MONOCYTE % (test code = MO%) 7.7 % 0.0-10.0 EOSINOPHIL % (test code = EO%) 3.0 % 0.0-5.0 BASOPHIL % (test code = BA%) 0.6 % 0.0-1.0 NUCLEATED RBC % (test code = NRBC%) 0.0 % 0-0 NEUTROPHIL # (test code = NT#) 2.12 K/mm3 1.8-7.7 IMMATURE GRANULOCYTE # (test code = IG#) 0.06 x10 3/uL 0-0.03 LYMPHOCYTE # (test code = LY#) 2.52 K/mm3 1.0-5.0 MONOCYTE # (test code = MO#) 0.41 K/mm3 0-0.8 EOSINOPHIL # (test code = EO#) 0.16 K/mm3 0.0-0.5 BASOPHIL # (test code = BA#) 0.03 K/mm3 0.0-0.2 NUCLEATED RBC # (test code = NRBC#) 0.00 K/mm3 0.0-0.1 [id number] 11:26:00* Test Item Value Reference Range Comments LITHIUM (test code = LITH) <0.1 mmol/L 0.5-1.5 - XR CHEST 1 [id number] 11:18:00 FAX: Nimisha Alfaro DO [place]: B St: DIS Name: Nieves MELVATALIA CORTEZ [facility] : [birth year] Age/S: 44/F [address] Unit #: [id number] Loc: V.2059 [place] [address] Phys: Nimisha Alfaro DO Acct: [id number] Dis Date: [id number] Status: DIS IN PHONE #: [phone] Exam Date: 07/12/2019 1045 FAX #: [phone] Reason: CHEST PAIN EXAMS: CPT CODE: [id number] XR CHEST 1 V 62652 REASON FOR EXAM: CHEST PAIN Exam Order Date: 07/12/2019 10:17 AM Ordering Jason: Nimisha Alfaro DO PROCEDURE: - XR CHEST 1 V COMP ARISON: Frontal chest x-ray December 17, 2017 FINDINGS: The piedad gs are clear. There is no pleural effusion or pneumothorax. Pulmonary vas cularity is within normal limits. Cardiomediastinal silhouette is normal in size for technique. The mediastinal contours are within normal l imits. Surgical hardware is present in the cervical spine. The visualized upper abdomen is within normal limits. IMPRESSION: No acute cardiopulmonary process. Loc ation: [facility] at 1118 Reported and signed by: Per Holder MD CC: Nimisha Alfaro DO Technologist: Tequila DONATO(R); Jill Dee(R) Trnscrd Date/Time/By: 07/12/2019 (1118) : By: [email or web address] Orig Print D/T: S: 07/12/2019 (1124) PAGE 1 Signed Report - XR CHEST 1 [id number] 11:18:00 FAX: Nimisha Alfaro DO [place]: [address] St: REG Name: TALIA JACKSON [facility] : [birth year] Age/S: 44/F [address] [facility] Unit #: [id number] Loc: [place] [address] Phys: Nimisha Alfaro DO Acct: [id number] Dis Date: Status: REG ER PHONE #: [phone] Exam Date: 07/12/2019 1045 FAX #: [phone] Reason: CHEST PAIN EXAMS: CPT CODE: [id number] XR CHEST 1 V 13477 REASON FOR EXAM: CHEST PAIN Exam Order Date: 07/12/2019 10:17 AM Ordering M.D.: Nimisha Alfaro DO PROCEDURE: - XR CHEST 1 V COMP ARISON: Frontal chest x-ray December 17, 2017 FINDINGS: The piedad gs are clear. There is no pleural effusion or pneumothorax. Pulmonary vas cularity is within normal limits. Cardiomediastinal silhouette is normal in size for technique. The mediastinal contours are within normal l imits. Surgical hardware is present in the cervical spine. The visualized upper abdomen is within normal limits. IMPRESSION: No acute cardiopulmonary process. Loc ation: [facility] at 1118 Reported and signed by: Per Holder MD CC: Nimisha Alfaro DO Technologist: Tequila DONATO(R); Jill Dee(R) Trnscrd Date/Time/By: 07/12/2019 (1118) : By: [email or web address] Orig Print D/T: S: 07/12/2019 (1122) PAGE 1 Signed Report - CT HEAD/BRAIN W/O [id number] 11:15:00 Name: TALIA MOBLEY [facility] : 1975 Age/S: 44 / F [address] [facility] Unit #: [id number] Loc: [place] [address] Phys: Nimisha Alfaro DO Acct: [id number] Dis Date: 07/19/2019 Status: DIS IN PHONE #: [phone] Exam Date: 07/12/2019 1057 FAX #: [phone] Reason: TRAUMA EXAMS: CPT CODE: [id number] CT HEAD/BRAIN W/O CONT 12346 HISTORY: TRAUMA TECHNIQUE: Noncontrast 2.[address] of the head. Examination acquired within 24 hours of arrival. Automated exposure control for dose reduction. COMPARISON: CT scan of the brain May 07, 2011 FINDINGS: No lacerations or contusions of the scalp or facial soft tissues. Calvarium and skull base are intact. No acute hemorrhage. No intracranial mass, mass effect, or midline shift. No effacement of the sulci or gonzalez-white matter interface. No cortical atrophy. No signs of white matter small-vessel disease. No hydrocephalus.. No extra-axial fluid collection. Visualized paranasal sinuses are clear. Mastoid air cells and middle ear cavities are clear. There is cerumen in the bilateral external auditory canals. Orbital contents are unremarkable. No acute fracture of the cervical spine. There is reversal of cervical lordosis. Craniocervical and cervicothoracic articulations are appropriate. 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 There is also been prior fusion of C6-C7 with placement of a disc spacer. No foraminal or central canal narrowing is seen. No prevertebral or paraspinal soft tissue abnormality. Lung apices are clear. IMPRESSION: Negative CT head. Postsurgical changes in the cervical spine with loss of cervical lordosis. However there is no fracture and no evidence of foraminal or central canal narrowing. Location: [facility] PAGE 1 Signed Report (CONTINUED) Name: TALIA MOBLEY [facility] : 1975 Age /S: 44 / [facility] [address] [facility]: [id number] Loc: [place] [address] Phys: Nimisha Alfaro DO Acct: [id number] Dis Date: 2018 Status: DIS IN PHONE #: [phone] Exam Date: 07/12/2019 1057 FAX #: [phone] Reason: TRAUMA EXAMS: CPT CODE: [id number] CT HEAD/BRAIN W/O CONT 43602 <Continued> at 1115 Reported and signed by: Per Holder MD CC: Nimisha Alfaro DO Technologist:Radha BurnsRT(R),CT; Leilani CTDI: DLP: Trnscb Date/Time: 07/12/2019 (1115) [email or web address] Orig Print D/T: S: 07/12/2019 (1118) PAGE 2 Signed Report - CT C-SPINE W/O CONTRAST 2019-07-12 11:15:00 Name: TALIA MOBLEY [facility] : 1975 Age/S: 44 / F [address] [facility] Unit #: [id number] Loc: [place] [address] Phys: Nimisha Alfaro DO Acct: [id number] Dis Date: 07/19/2019 Status: DIS IN PHONE #: [phone] Exam Date: 07/12/2019 1053 FAX #: [phone] Reason: Neck Pain EXAMS: CPT CODE: [id number] CT C-SPINE W/O CONTRAST 03854 HISTORY: TRAUMA TECHNIQUE: Noncontrast 2.[address] of the head. Examination acquired within 24 hours of arrival. Automated exposure control for dose reduction. COMPARISON: CT scan of the brain May 07, 2011 FINDINGS: No lacerations or contusions of the scalp or facial soft tissues. Calvarium and skull base are intact. No acute hemorrhage. No intracranial mass, mass effect, or midline shift. No effacement of the sulci or gonzalez-white matter interface. No cortical atrophy. No signs of white matter small- vessel disease. No hydrocephalus.. No extra-axial fluid collection. Visualized paranasal sinuses are clear. Mastoid air cells and middle ear cavities are clear. There is cerumen in the bilateral external auditory canals. Orbital contents are unremarkable. No acute fracture of the cervical spine. There is reversal of cervical lordosis. Craniocervical and cervicothoracic articulations are appropriate. 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 There is also been prior fusion of C6-C7 with placement of a disc spacer. No foraminal or central canal narrowing is seen. No prevertebral or paraspinal soft tissue abnormality. Lung apices are clear. IMPRESSION: Negative CT head. Postsurgical changes in the cervical spine with loss of cervical lordosis. However there is no fracture and no evidence of foraminal or central canal narrowing. Location: [facility] PAGE 1 Signed Report (CONTINUED) Name: TALIA MOBLEY [facility] : 1975 Age/S: 44 / F [address] [facility] Unit #: [id number] Loc: [place] [address] Phys: Nimisha Alfaro DO Acct: [id number] Dis Date: 07/19/2019 Status: DIS IN PHONE #: [phone] Exam Date: 07/12/2019 1054 FAX #: [phone] Reason: Neck Pain EXAMS: CPT CODE: [id number] CT C-SPINE W/O CONTRAST 68795 <Continued> at 1115 Reported and signed by: Per Holder MD CC: Nimisha Alfaro DO Technologist:Radha Burns,RT(R),CT; Leilani CTDI: DLP: Trnscb Date/Time: 07/12/2019 (1115) [email or web address] Orig Print D/T: S: 07/12/2019 (9094) PAGE 2 Signed Report - CT C-SPINE W/O CONTRAST 2019-07-12 11:15:00 Name: TALIA MOBLEY [facility] : 1975 Age/S: 44 / F [address] [facility] Unit #: [id number] Loc: [place] [address] Phys: Nimisha Alfaro DO Acct: [id number] Dis Date: Status: REG ER PHONE #: [phone] Exam Date: 07/12/2019 1057 FAX #: [phone] Reason: Neck Pain EXAMS: CPT CODE: [id number] CT C-SPINE W/O CONTRAST 41609 HISTORY: TRAUMA TECHNIQUE: Noncontrast 2.[address] of the head. Examination acquired within 24 hours of arrival. Automated exposure control for dose reduction. COMPARISON: CT scan of the brain May 07, 2011 FINDINGS: No lacerations or contusions of the scalp or facial soft tissues. Calvarium and skull base are intact. No acute hemorrhage. No intracranial mass, mass effect, or midline shift. No effacement of the sulci or gonzalez-white matter interface. No cortical atrophy. No signs of white matter small- vessel disease. No hydrocephalus.. No extra-axial fluid collection. Visualized paranasal sinuses are clear. Mastoid air cells and middle ear cavities are clear. There is cerumen in the bilateral external auditory canals. Orbital contents are unremarkable. No acute fracture of the cervical spine. There is reversal of cervical lordosis. Craniocervical and cervicothoracic articulations are appropriate. 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 There is also been prior fusion of C6-C7 with placement of a disc spacer. No foraminal or central canal narrowing is seen. No prevertebral or paraspinal soft tissue abnormality. Lung apices are clear. IMPRESSION: Negative CT head. Postsurgical changes in the cervical spine with loss of cervical lordosis. However there is no fracture and no evidence of foraminal or central canal narrowing. Location: [facility] PAGE 1 Signed Report (CONTINUED) Name: TALIA MOBLEY [facility] : 1975 Age/S: 44 / F [address] Unit #: [id number] Loc: [place] [address] Phys: Nimisha Alfaro DO Acct: [id number] Dis Date: Status: REG ER PHONE #: [phone] Exam Date: 07/12/2019 1054 FAX #: [phone] Reason: Neck Pain EXAMS: CPT CODE: [id number] CT C-SPINE W/O CONTRAST 81820 <Continued> at 1115 Reported and signed by: Per Holder MD CC: Nimisha Alfaro DO Technologist:Radha BurnsRT(R),CT; Leilani CTDI: DLP: Trnscb Date/Time: 07/12/2019 (1115) [email or web address] Orig Print D/T: S: 07/12/2019 (1118) PAGE 2 Signed Report - CT HEAD/BRAIN W/O CONT 2019-07-12 11:15:00 Name: TALIA MOBLEY [facility] : 1975 Age/S: 44 / F [address] Unit #: [id number] Loc: [place] [address] Phys: Nimisha Alfaro DO Acct: [id number] Dis Date: Status: REG ER PHONE #: [phone] Exam Date: 07/12/2019 1052 FAX #: [phone] Reason: TRAUMA EXAMS: CPT CODE: [id number] CT HEAD/BRAIN W/O CONT 10525 HISTORY: TRAUMA TECHNIQUE: Noncontrast 2.[address] of the head. Examination acquired within 24 hours of arrival. Automated exposure control for dose reduction. COMPARISON: CT scan of the brain May 07, 2011 FINDINGS: No lacerations or contusions of the scalp or facial soft tissues. Calvarium and skull base are intact. No acute hemorrhage. No intracranial mass, mass effect, or midline shift. No effacement of the sulci or gonzalez-white matter interface. No cortical atrophy. No signs of white matter small- vessel disease. No hydrocephalus.. No extra-axial fluid collection. Visualized paranasal sinuses are clear. Mastoid air cells and middle ear cavities are clear. There is cerumen in the bilateral external auditory canals. Orbital contents are unremarkable. No acute fracture of the cervical spine. There is reversal of cervical lordosis. Craniocervical and cervicothoracic articulations are appropriate. 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 There is also been prior fusion of C6-C7 with placement of a disc spacer. No foraminal or central canal narrowing is seen. No prevertebral or paraspinal soft tissue abnormality. Lung apices are clear. IMPRESSION: Negative CT head. Postsurgical changes in the cervical spine with loss of cervical lordosis. However there is no fracture and no evidence of foraminal or central canal narrowing. Location: [facility] PAGE 1 Signed Report (CONTINUED) Name: TALIA MOBLEY [facility] : 1975 Age/S: 44 / F [address] [facility] Unit #: [id number] Loc: [place] [address] Phys: Nimisha Alfaro DO Acct: [id number] Dis Date: Status: REG ER PHONE #: [phone] Exam Date: 07/12/2019 1057 FAX #: [phone] Reason: TRAUMA EXAMS: CPT CODE: [id number] CT HEAD/BRAIN W/O CONT 21232 <Continued> at 1115 Reported and signed by: Per Holder MD CC: Nimisha Alfaro DO Technologist:RT Zana(R),CT; Leilani CTDI: DLP: Trnscb Date/Time: 07/12/2019 (1115) [email or web address] Orig Print D/T: S: 07/12/2019 (6351) PAGE 2 Signed Report PROTHROMBIN [id number] 10:56:00* Test Item Value Reference Range Comments PROTHROMBIN TIME PATIENT (test code = PTP) 11.0 seconds 9.0-1 4.0 INTERNATIONAL NORMAL RATIO (test code = INR) 0.9 0.8 -1.2 The therapeutic range for oral anticoagulant therapy formost indications is an international normalized ratio (INR)of between 2.0 and 3.0. The recommended therapeutic INRrange for various clinical situations is listed below: Clinical Situation INR range Pulmonary e mbolism treatment (2.0-3.0)Venous thrombosis treatmentVenous thrombosis prophylaxis (high risk surgery)Prevention of systemic embolism from: Acute myocardial infarction Valvular heart disease Atrial fibrillation Mechanical prosthetic heart valves (2.5-3.5) IS PATIENT ON ANTICOAGULANTS? NTHROMBOPLASTIN TIME [id number] 10:56:00* Test Item Value Reference Range Comments THROMBOPLASTIN TIME PARTIAL (test code = PTT) 33.6 seconds 25 .0-36.5 IS PATIENT ON ANTICOAGULANTS? [id number] 10:48:00* Test Item Value Reference Range Comments ACETAMINOPHEN (test code = ACET) < 10 mcg/mL 10-30 A RANGE OF 10-30 mcg/mL IS A THERAPEUTIC RANGE. TOXIC CONCENTRATIONS: >150 mcg/mL AT 4 HOURS AFTER INGESTION >= 50 mcg/mL AT 12 HOURS AFTER INGESTION [id number] 10:48:00* Test Item Value Reference Range Comments SALICYLATE (test code = DANIEL) 7.2 mg/dL 2.8-20.0 HEPATIC FUNCTION [id number] 10:48:00* Test Item Value Reference Range Comments TOTAL PROTEIN (test code = PROT) 7.3 gram/dL 6.4-8.2 ALBUMIN (test code = ALB) 4.0 g/dL 3.4-5.0 GLOBULIN (test code = GLOB) 3.3 gram/dL 2.7-4.2 ALBUMIN/GLOBULIN RATIO (test code = A/G) 1.2 0.75-1. 50 BILIRUBIN TOTAL (test code = BILT) 0.30 mg/dL 0.0-1.0 BILIRUBIN DIRECT (test code = BILD) 0.13 mg/dL 0.0-0.20 SGOT/AST (test code = AST) 29 IUnit/L 15-37 SGPT/ALT (test code = ALT) 36 IUnit/L 12-78 ALKALINE PHOSPHATASE TOTAL (test code = ALKP) 70 IUnit/L 45 -117 Note change in reference range due to change in reagent. [id number] 10:48:00* Test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
--- NOTE | 2019-12-04 14:14 | Diagnostic Imaging Report ---
History: Pain behind the right ear Comparison studies: None Technique: Axial images were obtained from the skull base to the vertex. Coronal and sagittal reconstructions obtained from the axial data. Dose modulation, iterative reconstruction, and/or weight based adjustment of the mA/kV was utilized to reduce the radiation dose to as low as reasonably achievable. Intravenous contrast: None Findings: Scalp/skull: No abnormalities. No fractures, blastic or lytic lesions. Extra-axial spaces: No masses. No fluid collections. Brain sulci: Appropriate for age. Ventricles: Normal in size and configuration. No hydrocephalus. Parenchyma: No abnormal densities. No masses, hemorrhage, acute or chronic cortical vascular insults. Sellar/suprasellar region: No abnormalities Craniocervical junction: Patent foramen magnum. No Chiari one malformation. Incidental findings: None. IMPRESSION: No abnormalities. Signed by: Dr. Triston Pollard M.D. on 12/04/2019 2:11 PM
[2019-12-04] MEDS ORDERED: PREDNISONE20 MG PO (15:21)
[2019-12-04] MEDS ORDERED: CEFDINIR300 MG PO (15:21)
== END 2019-12-04 15:40 | disposition home or self-care (01) ==
LOC: ER 11:20
DX: R59.1 Generalized enlarged lymph nodes (principal); R10.31 Right lower quadrant pain; R11.0 Nausea; R19.7 Diarrhea, unspecified
CPT/HCPCS: 70450; 99283